=== PATIENT | male | born 1955 | race African-American/Black ===

== ENCOUNTER 2019-07-08 06:00 | Outpatient (RCR) | payer OTHER, SELFPAY | END 2019-08-07 00:01 | LOC: SPT 06:00 | PROVIDERS: Family Provider Emergency Medicine Emergency Medical Services; Visit Provider Licensed Practical Nurse | DX: M54.2 Cervicalgia (principal) | CPT/HCPCS: 97110 ×2 ==

== ENCOUNTER 2019-09-07 11:57 | Observation (INO) | payer OTHER, SELFPAY ==
[2019-09-05 08:57] VITALS: BMI 34.7
--- NOTE | 2019-09-05 09:20 | ANES.PREANES ---
Pre-Anesthetic Assessment Pre-Anesthetic Assessment: Height/Weight: Height 1.82 m Weight 114.759 kg Preop Diagnosis: Intervertebral disc disorder with myelopathy Proposed Procedure: Operation Date: 09/06/19 08:00 Proposed Procedures p Anterior Cervical Discecotmy&Fusion 2Lev C4-C5, C5-C6(Not Applicable) - Marco A Yu MD Familial anesthetic complications: No trouble iwth anesthesia Social: Social History: No alcohol and No tobacco Exam: Pre-Anes Outpt Exam: alert, oriented x 3, clear to auscultation bilaterally and regular rate & rhythm Airway: Cervical ROM: WNL MP: 2 Dentition: Loose Additional comments: 2 loose teeth, one on bottom. One is front INCISOR - patient informed risk of tooth being knocked out Pulmonary: Pulmonary: None reported CV/HEM: Comments: HOCM - received alchohol septal ablation 2 years ago (had been having fatigue with exertion), can now walk 2 miles : : None reported Hepatic: Hepatic: None reported GI: GI: None reported Musc/skel: Musc/skel: None reported Neuropsych: Neuropsych: None reported Comments: Has multiple sclerosis is on interferon - uses can for balance Anesthetic Plan: ASA status: III Anesthesia: General Risk of > 500 ml blood loss (7ml/kg in children): Yes, adequate IV access and fluids planned Data Anesthesia Cardiac Studies: No Data to Display
[2019-09-07] VITALS (13 sets, daily range): BP systolic 126–157; BP diastolic 67–100; PULSE 78–93; RESP 14–20; TEMP 36.3–36.9; O2SAT 91–100
--- NOTE | 2019-09-07 | XR_ITS ---
WS: [id number] Portable lateral cervical spine in the OR, 09/07/2019, 0727 hours Clinical Data: ACDF Comparison: Lateral cervical spine x-ray, 05/02/2019. Findings: An endotracheal tube is in good position. There is a radiopaque needle which is obliquely placed with the tip in the subcutaneous tissue at the C4 level. XR/XR cervical spine 1V 20111 Impression: Lateral cervical spine for localization of cervical vertebral body.
[2019-09-07] MEDS: sodium chloride 0.9% 1,000 ML 30 ML IV (06:33)
--- NOTE | 2019-09-07 06:36 | P.ANES_ITS ---
Pre-Anesthetic Update Pre-Anesthetic Assessment: Date of Surgery/Procedure: 09/07/19 Preop Celia gnosis: Intervertebral disc disorder with myelopathy Proposed Procedure: Operation Date: 09/07/19 07:00 Proposed Procedures p Anterior Cervical Discecotmy&Fusion 2Lev C4-C5, C5-C6(Not Applicable) - Marco A Yu MD Any changes to Pre-Anesthetic Assessment?: No Last Intake: Intake Last Liquid Date 09/06/19 Last Liquid Time 21:30 Last Solid Date 09/06/19 Last Solid Time 17:30 Vitals: Temperature 97.8 F 09/07/19 06:22 Pulse Rate 78 09/07/19 06:22 Respiratory Rate 18 09/07/19 06:22 Blood Pressure 157/100 09/07/19 06:22 Blood Pressure Jessi n 119 09/07/19 06:22 Pulse Oximetry 100 09/07/19 06:22 Oxygen Delivery Me thod 09/07/19 05:54 Exam: Pre-Anes Outpt Exam: alert, oriented x 3, clear to auscultation bilaterally and regular rate & rhythm Other Pertinent Information: Other Pertinent Information: Took metoprolol this morning Cardiac Studies: No Data to Display
--- NOTE | 2019-09-07 06:57 | PM.HPUD ---
H&P update H&P Update: DATE OF SURGERY/PROCEDURE: 09/07/19 DATE H&P PERFORMED: 08/14/19 H&P UPDATE INFORMATION: H&P completed within last 30 days and No changes to prior documentation PREOP DIAGNOSIS: Intervertebral disc disorder with myelopathy, cervical PRIMARY INDICATION FOR PROCEDURE: Severe cervical spinal canal compromise with neck pain and upper extremity symptoms. PLANNED PROCEDURE: Operation Date: 09/07/19 07:00 Proposed Procedures Anterior Cervical Discectomy/Fusion/fixation, C4-C5, C5-C6 - Marco A Yu MD Full H&P Medications/Allergies: Current Medications: Current Medications Generic Name Dose Route Start Last Admin Trade Name Freq PRN Reason Stop Dose Admin Sodium Chloride 1,000 mls @ 30 ml s/hr 09/07/19 06:30 09/07/19 06:33 Sodium Chloride 0.9% IV 09/08/19 06:29 30 mls/hr .Q24H NITZA Administration
--- NOTE | 2019-09-07 07:07 | PM.OP2 ---
 Brief Operative Note: Date of procedure: 09/07/19 Pre-op diagnosis: Intervertebral disc disorder with myelopathy, midcervical Post-op diagnosis: other (Same, with Instability of joint) Procedure Done: C4-C5, C5-C6 ACDFF Surgeon: Marco A Yu Estimated blood loss (mL): 25 Complications: None Post-op Plan: PACU, then surgical barnes Condition: stable Disposition: PACU Coding Level of Care Code Acute Oliving Machine Operator for Karime Ibarra
--- NOTE | 2019-09-07 08:08 | XR_ITS ---
WS: [id number] Portable lateral cervical spine in the OR, 09/07/2019, 0808 hours Clinical Data: surgery Comparison: Portable lateral cervical spine in the OR, 09/07/2019, 0727 hours. Findings: Soft tissue retractors are now been placed in the neck. There is a radiopaque needle which is localiz ing the C5-C6 disc interspace. XR/XR cervical spine 1ort 17148 Impression: Localization of C5-C6 interspace.
--- NOTE | 2019-09-07 08:16 | SUR.OPER ---
Family Notified Of Patient's Status Via Phone.
--- NOTE | 2019-09-07 09:23 | SUR.OPER ---
Family Notified Of Patient's Status Via Phone.
--- NOTE | 2019-09-07 10:24 | SUR.OPER ---
Family Notified Of Patient's Status Via Phone.
--- NOTE | 2019-09-07 11:26 | XR_ITS ---
WS: [id number] Cervical spine, AP and lateral views, 09/07/2019 1155 hours Clinical Data: Arthrodesis status Comparison: Portable lateral cervical spine in the OR, 09/07/2019, 0808 hours Findings: The patient is had an anterior cervical disc fusion from C4 through C6. The neural surgical screws and plate are in good position. There are disc spacers at C4-C5 and C5-C6. XR/XR cervical spine 3V* 14194 Impression: Satisfactory anterior cervical disc fusion of C4-C6.
--- NOTE | 2019-09-07 11:42 | SUR.PHASEI ---
8810 PATIENT TO PACU AT THIS TIME VIA GURNEY. RR EVEN AND UNLABORED. PWD. DRESSING TO ANTERIOR NECK, CDI WITH [place] J COLLAR IN PLACE. PT PLACED ON SIMPLE MASK AT 8L, SPO2 95%. PATIENT OPENS EYES TO VERBAL STIMULI.
--- NOTE | 2019-09-07 12:23 | SUR.PHASEI ---
1208 PATIENT TO MED SURG AT THIS TIME. RR EVEN AND UNLABORED. PWD. DENIES PAIN. ANTERIOR NECK DRESSING, CDI WITH [place] J COLLAR IN PLACE.
--- NOTE | 2019-09-07 12:40 | P.DS_ITS ---
Discharge Providers Date of Admission: 09/07/19 11:57 Date of Discharge: August Attending Provider at Admission: Marco A Yu MD Attending Provider at Discharge: Marco A Yu MD Primary Care Provider: Albert Garg DO Diagnoses at Discharge Discharge Diagnosis (1) Cervical disc disorder with myelopathy of mid-cervical region: Status: Acute Problem details: Patient is doing well after C4-C6 ACDFF performed earlier today. He appears reasonable for discharge home today, as requested. (2) Instability of joint: Status: Acute Reason for Visit Reason for Visit: Reason For Visit: Cervical disc disorder w/ myelopathy M50.020/71228 Brief History: The patient is a 64-year-old male with symptomatic, radiographically confirmed cervical disc/joint disease, and associated neural impingement. He complained of neck pain and bilateral upper extremity symptoms. Imaging studies demonstrated marked canal and bilateral foraminal compromise at C4-C5 and C5-C6. Conservative management did not provide adequate lasting symptom relief. After review of the diagnostic and treatment options with the risks/potential benefits/rationale for each, the patient requested to proceed with surgical intervention. Hospital Course Hospital Course: The patient underwent C4-C6 ACDFF on September 07, 2019. He tolerated the procedure well, and noted improvement in preoperative symptoms following surgery. He completed preoperative and postoperative intravenous antibiotic doses, and the physical therapy postoperative spine protocol. He was ambulatory, voiding, tolerating regular diet prior to requested discharge home on the evening of the date of surgery. Physical Exam Const: COMMON NORMALS: no apparent distress GENERAL APPEARANCE: cooperative and comfortable Neck/C-Spine: COMMON NORMALS: supple and no JVD CERVICAL SPINE: Yes collar present NECK IMAGES: 1. Surgical scar, with Steristrips. Cardio: COMMON NORMALS: no JVD Neuro: COMMON NORMALS: moves all extremities and no focal motor deficits (Upper extremities) Psych: COMMON NORMALS: speech normal ATTITUDE: Yes calm and Yes engaged ACTIVITY/MOTOR BEHAVIOR: Yes appropriate eye contact SPEECH: Yes normal speech MOOD & AFFECT: Yes euthymic mood ATTENTION/CONCENTRATION: Yes attention grossly intact Skin: WOUNDS: Yes surgical site (Left anterolateral neck surgical site dressing clean/dry/intact.) Urinary Catheter Management^: [place]: Cath Placed During This Visit: yes Urethral Indwelling: No Urinary Catheter Date of Insertion: 09/07/19 Urinary Catheter Time of Insertion: 07:20 Discharge Data Data Completed and Pending: Completed Studies During Hospitalization Category Date Time Status XR cervical spine 1 view portable [ XR cervical spine Exams 09/07/19 08:08 Completed 1Vport 82007] Rou hunter XR cervical spine 1V 35192 Routine Exams 09/07/19 Completed XR cervical spine 3V* [id number] Routine Exams 09/07/19 11:26 Completed Pathology: Surgic al [PTH] Routine Pth 09/07/19 11:44 Completed Addt'l Data from Hospital Stay: C-spine x-rays: Postoperative changes of recent C4-C6 ACDF, without noted complication. Vitals: Last Vital Signs Temp 97.9 F 09/08/19 00:38 Pulse 87 09/08/19 00:38 Resp 20 H 09/08/19 00:38 BP 138/73 09/08/19 00:38 Pulse Ox 92 09/08/19 00:38 Discharge Plan Discharge Patient Disposition: Home, Self-Care Condition: Stable Prescriptions: New [place] 7.5-325 mg tablet 1 tab PO Q4H PRN (Reason: pain) Qty: 30 RF: 0 Continued citalopram 40 mg Tablet 20 mg PO DAILY RF: 0 metoprolol tartrate [Lopressor] 100 mg Tablet 150 mg PO DAILY RF: 0 lisinopril 20 mg Tablet 20 mg PO DAILY RF: 0 sildenafil 100 mg Tablet 100 mg PO DAILY PRN (Reason: Erectile Dysfunction) RF: 0 nitroglycerin 0.4 mg Tablet, Sublingual 0.4 mg SUBLINGUAL Q5M PRN (Reason: Chest Pain) RF: 0 cyanocobalamin (vitamin B-12) [Vitamin B-12] 2,000 mcg Tablet Extended Release 2,000 mcg PO RF: 0 finasteride 5 mg Tablet 5 mg PO DAILY RF: 0 cholecalciferol (vitamin D3) [Vitamin D3] 25 mcg (1,000 unit) Capsule 25 mcg PO DAILY RF: 0 rosuvastatin 20 mg Tablet 20 mg PO DAILY RF: 0 interferon beta-1b auto-injector 1 INJECTION EVERY OTHER DAY RF: 0 No Action aspirin 81 mg Tablet,Delayed Release (Dr/Ec) 81 mg PO DAILY RF: 0 Discharge Orders: Discharge Order (Routine); Ordered 09/07/19 Ordered By: Marco A Yu Other Ambulatory Orders: XR cervical spine 3V* [id number] (Routine) Timeframe: 2 Weeks Facility: [facility] - Location: [facility] Ordered By: Marco A Yu Referrals: Marco A Yu MD [Physician] - 2 weeks (Call the clinic on Tuesday and make an appointment to be seen in the next 2 weeks.) Discharge Diet: Advance as tolerated Discharge Activity: Limit activity as instructed Patient Instructions: Hydrocodone/Acetaminophen (By mouth), Anterior Cervical Discectomy (DC) Activity Restrictions/Additional Instructions: Activity -Cervical fusion: Wear cervical collar 24 hours a day. Change as necessary for showering, shaving, or if it becomes soiled. -No lifting or reaching overhead. - No driving until office followup visit - No lifting/pushing/pulling over 10 pounds - Avoid twisting or bending - Walking is encouraged - Home exercise per physical therapist - You may engage in sexual intercourse at any time as long as it is comfortable for you - Check with your doctor before returning to work. Notify your doctor if you develop: - temperature of 101.5 degrees F. or higher - redness or swelling of the incision - Foul drainage - increasing pain - increasing numbness or tingling in the arms or legs - New or increasing problems with vision, balance, memory, speaking, nausea or vomiting Hygiene: - Showering is okay - No tub baths or soaking Other: Remove outer bandage 3 days after surgery. If you have paper strips, leave in place until they fall off on their own. If you have stitches, keep your incision dry until the stitches are removed. Your doctor's office is available to answer any questions from 7 AM to 5:00 PM, Tuesday through at [phone]. After hours, go to the emergency room at [facility] or call 911 for assistance. Discharge Date/Time: 09/07/19 19:00 Discharge Attestations Time Spent in Discharge Care*: other (postop global) Quality Metrics Clinical Quality Measures During this hospital stay, did patient experience: None Coding Level of Care Code Acute Advisory Software Engineer for Brianneg Fwd Exam Problem Focused Diagnoses Cervical disc disorder with myelopathy of mid-cervical region M50.020 Instability of joint M25.30 Comment postop global
[2019-09-07] MEDS: lactated ringers 1,000 ML 90 ML IV (13:13)
[2019-09-07] MEDS: atorvastatin 40 mg Tablet 80 MG PO (13:14)
[2019-09-07] MEDS: cholecalciferol (vitamin D3) 1,000 unit Tablet 1000 UNIT PO (13:14)
[2019-09-07] MEDS: docusate sodium 100 mg Capsule PO (17:27)
[2019-09-08 00:38] VITALS: BP 138/73; PULSE 87; RESP 20; TEMP 36.6; O2SAT 92
--- NOTE | 2019-09-08 20:54 | P.OP_ITS ---
Operative Report Date of procedure: September 07, 2019 Pre-op Diagnosis: Intervertebral disc disorder with myelopathy, mid cervical Post-op Diagnosis: Intervertebral disc disorder with myelopathy, midcervical Instability of joint Procedure Done: 1. C4-C5, C5-C6 anterior cervical discectomy with osteophytectomy. 2. C4-C5, C5-C6 anterior cervical plate and screw fixation. 3. C4-C5, C5-C6 placement of intervertebral prosthetic devices. 4. C4-C5, C5-C6 anterior cervical fusion utilizing morselized autograft obtained from the osteophytectomy portions of the procedure. Implants: Synthes Vectra plate/screw system. ACIS ProTi Spacers. Specimens removed/disposition: C4-C5, C5-C6 disc Surgeon: Marco A Yu Anesthesia: General Estimated blood loss (mL): 25 Complications: None. Condition: stable Disposition: PACU Brief History: The patient is a 64-year-old male with symptomatic, radiographically confirmed cervical disc/joint disease, and associated neural impingement. He complained of neck pain and bilateral upper extremity symptoms. Imaging studies demonstrated marked canal and bilateral foraminal compromise at C4-C5 and C5-C6. Conservative management did not provide adequate lasting symptom relief. After review of the diagnostic and treatment options with the risks/potential benefits/rationale for each, the patient requested to proceed with surgical intervention. Procedure: After routine preoperative evaluation and informed consent were obtained, the patient was taken to the Operating Room and placed under general endotracheal anesthesia by Anesthesia personnel. He was positioned supine and fit in the [place] tongs for the application of in-line cervical traction. The anterolateral neck on the left was prepared with hair clippers. A proposed transverse skin incision was marked with a sterile skin marker, utilizing intraoperative radiography and regional anatomy for localization. The area was scrubbed with Betadine, prepped with DuraPrep, and draped with sterile towels and drapes. [place]an surgical barrier was applied. The proposed incision site was infiltrated with 1% Xylocaine with Epinephrine. A skin incision was made and carried down into the subcutaneous tissues. The platysma was identified and divided in the direction of its fibers. A plane was dissected just medial to the carotid sheath and lateral to the midline esophagus and trachea. Prevertebral soft tissues were bluntly dissected free of the anterior margin of the cervical spine. Longus coli muscles were freed from their medial attachments. Deep self- retaining retractors were placed. Intraoperative radiography verified the desired surgical levels. The C4-C5 and C5-C6 interspaces were sequentially incised with a #11 blade. Discectomies were accomplished utilizing various curettes and pituitary rongeurs. Anterior marginal osteophytes were resected with the Lempert and Kerrison rongeurs. Cartilaginous end plates were stripped free with curettes. Posterior marginal osteophytes were resected with thin foot plate Kerrison rongeurs. The medial aspects of the neural foramina were enlarged in a similar manner. Posterior longitudinal ligament was divided and resected as necessary to further the decompression. Due to extensive bony overgrowth of the disc space and marginal osteophyte contribution to neural impingement, the [employer] high-speed drill with xin mark was utilized to complete the osteophytectomy portions of the procedure and for endplate preparation. Once the decompressions were felt to be adequate at both levels, the disc spaces were sized. An 8 mm ACIS ProTi lordotic/medium Spacer was chosen for C4-C5. A 7mm ACIS ProTi lordotic/medium Spacer was chosen for C5-C6. The Spacers were packed with morselized autograft obtained from the osteophytectomy portions of the procedure. The Spacers were sequentially placed within the C4-C5 and C5-C6 interspaces while in-line cervical traction was applied via the Lynch-Wells tongs. Once the Spacers were felt to be in good position, a Synthes Vectra plate of the desired size was chosen. The plate was bent to match the curvature of the patient's cervical spine utilizing the plate chowdhury. The plate was secured to the C4, C5 and C6 vertebral bodies with bilateral 4 mm x 14 mm self-drilling screws. Final screw tightening was performed, and the locking mechanisms within the plate were noted to engage the screws at each site. The construct was inspected and felt to be in good position and secure. The wound was copiously irrigated with sterile saline and antibiotic irrigation. Hemostasis was ensured with the bipolar electrocautery and Surgi-Isaac hemostatic matrix. Wound closure was performed in multiple layers with 2-0 Vicryl Plus simple interrupted closure of the platysma and deep dermis as separate layers. Final skin closure was performed with 4-0 Vicryl Plus in a running subcuticular pattern. Steri-Strips were applied, and a sterile dressing was placed. The patient was released from the [facility] and fit in a Mears collar. He was transferred onto the Recovery Room cart in the supine position. He was extubated without incident. The patient tolerated the procedure well. All sponge, needle, and instrument counts were correct at the completion of the procedure.
== END 2019-09-07 19:00 | disposition home or self-care (01) ==
LOC: MEDSURG 11:58
PROVIDERS: Admitting Provider Specialist; Family Provider Emergency Medicine Emergency Medical Services; PCP Emergency Medicine Emergency Medical Services; Visit Provider Specialist
PROC: 0RB30ZZ Excision of Cervical Vertebral Disc, Open Approach (ICD-10-PCS; CPT 22551; principal; 2019-09-07 07:00)
DX: M50.021 Cervical disc disorder at C4-C5 level with myelopathy (principal); I10 Essential (primary) hypertension; E78.5 Hyperlipidemia, unspecified
CPT/HCPCS: 20936; 22551; 22552; 22853 ×2; 12345; 51702; 72020; 72040; 88304; 96361; 97110; 97161; C1713; G0378; J0131; J0690; J1100; J2001; J2405; J2704; J3010; J3490; J7030; L0172; L0174

== ENCOUNTER 2019-09-19 09:49 | Outpatient (CLI) | payer OTHER, SELFPAY ==
--- NOTE | 2019-09-19 10:02 | XR_ITS ---
WS: [id number] CERVICAL SPINE TECHNIQUE: 3 views of the cervical spine CLINICAL INFORMATION: postop ACDFF COMPARISON: September 07, 2019 FINDINGS: Straightening of the normal cervical lordosis. Anterior interbody cervical fusion C4-C6 with interbod y fusion grafts. Hardware and fusion grafts appear in good position. Normal postoperative prevertebra l soft tissue edema. Normal C1-C2 articulation. XR/XR cervical spine 3V* [id number] IMPRESSION: Normal postoperative ACDF C4-C6
== END 2019-09-19 09:50 | disposition home or self-care (01) ==
PROVIDERS: Family Provider Emergency Medicine Emergency Medical Services; PCP Emergency Medicine Emergency Medical Services; Visit Provider Specialist
DX: Z98.1 Arthrodesis status (principal)
CPT/HCPCS: 72040

== ENCOUNTER 2019-10-11 11:13 | Outpatient (CLI) | payer OTHER, SELFPAY ==
--- NOTE | 2019-10-11 11:21 | XR_ITS ---
WS: [id number] CERVICAL SPINE TECHNIQUE: 3 views of the cervical spine CLINICAL INFORMATION: ARTHRODESIS STATUS COMPARISON: None. FINDINGS: Postoperative changes anterior interbody fusion C4-C6 with interbody fusion grafts. Postoperative pre vertebral soft tissue edema with persistent but improved. XR/XR cervical spine 3V* [id number] IMPRESSION: Anterior cervical fusion is stable with persistent but improved prevertebral so ft tissue edema.
== END 2019-10-11 11:14 | disposition home or self-care (01) ==
PROVIDERS: Family Provider Emergency Medicine Emergency Medical Services; PCP Emergency Medicine Emergency Medical Services; Visit Provider Licensed Practical Nurse
DX: Z98.1 Arthrodesis status (principal)
CPT/HCPCS: 72040

== ENCOUNTER 2019-11-12 08:35 | Outpatient (CLI) | payer OTHER, SELFPAY ==
--- NOTE | 2019-11-12 08:39 | XR_ITS ---
WS: [id number] CERVICAL SPINE 2 VIEWS HISTORY: s/p cervical spinal fusion COMPARISON: 10/11/2019 Status post anterior cervical fusion from C4 to C6. Interbody disc spaces at C4-5 and C5-6. No lucenc y around the screws. No subsidence of interbody spacers. Mild narrowing of the disc level C3-4. Moderate disc space narrowing at C6-7. Soft tissues are normal. XR/XR cervical spine 3V* [id number] IMPRESSION: 1. Status post anterior cervical fusion with interbody spacer from C4 to C6. 2. No complications.
--- NOTE | 2019-11-12 13:29 | CT_ITS ---
WS: [id number] CT CERVICAL SPINE HISTORY: s/p cervical spinal fusion TECHNIQUE: Contiguous 2.5 mm axial imaging performed through the entire cervical spine. Sagittal and coronal reformats also performed. All CT scans at [facility] use at least one of these do se optimization techniques: automated exposure control; mA and/or kV adjustment per patient size (inc ludes targeted exams where dose is matched to clinical indication); or iterative reconstruction. DLP: 1904.59 mGycm COMPARISON: 05/14/2019 Straightening of the normal cervical lordosis. Prior anterior fusion from C4 through C6. Interbody sp acers at C4-5 and C5-6 without fusion. No subsidence or change in position of the graft. Disc space h eight have been resumed. No fracture. C2-C3: Central disc protrusion. C3-C4: Mild osteophytic ridging without stenosis. C4-C5: Mild osteophytic ridging without stenosis. C5-C6: Diffuse osteophytic ridging with encroachment upon the ventral thecal sac and foramen. Severe central and bilateral foraminal stenosis. C6-C7: Diffuse osteophytic ridging with at least moderate central and bilateral foraminal stenosis. C7-T1: No stenosis. Soft tissues are normal. Lung apices are clear. CT/CT cervical spin wo con* [id number] IMPRESSION: 1. Interval placement of anterior cervical fusion hardware with interbody spac ers at C4-5 and C5-6 without postsurgical complications. 2. Severe central and bilateral foraminal stenosis at C5-6 and moderate at C6- 7.
== END 2019-11-12 08:36 | disposition home or self-care (01) ==
PROVIDERS: Family Provider Emergency Medicine Emergency Medical Services; PCP Emergency Medicine Emergency Medical Services; Visit Provider Licensed Practical Nurse
DX: Z98.1 Arthrodesis status (principal); M48.02 Spinal stenosis, cervical region
CPT/HCPCS: 72040; 72125

== ENCOUNTER → 2020-01-29 11:20 | Outpatient (BNVA) | payer OTHER, SELFPAY | PROVIDERS: Family Provider Emergency Medicine Emergency Medical Services; PCP Emergency Medicine Emergency Medical Services; Referring Provider Emergency Medicine Emergency Medical Services; Visit Provider Specialist | DX: G35 Multiple sclerosis (principal); R50.9 Fever, unspecified | CPT/HCPCS: G0463 ==

== ENCOUNTER → 2020-02-19 08:45 | Outpatient (BNVA) | payer OTHER, SELFPAY | PROVIDERS: Family Provider Emergency Medicine Emergency Medical Services; PCP Emergency Medicine Emergency Medical Services; Visit Provider Specialist | DX: G35 Multiple sclerosis (principal) | CPT/HCPCS: 99213; 99214 ==

== ENCOUNTER → 2021-02-10 09:39 | Outpatient (BNVA) | payer OTHER, SELFPAY | PROVIDERS: Family Provider Emergency Medicine Emergency Medical Services; PCP Emergency Medicine Emergency Medical Services; Visit Provider Specialist | DX: G35 Multiple sclerosis (principal); Z87.891 Personal history of nicotine dependence | CPT/HCPCS: 99214 ==

== ENCOUNTER 2021-03-11 07:47 | Outpatient (CLI) | payer OTHER, SELFPAY ==
--- NOTE | 2021-03-11 07:51 | MR_ITS ---
WS: [id number] MRI CERVICAL SPINE with and without contrast. HISTORY: G35 - Multiple sclerosis COMPARISON: 02/27/2019 Technique: Multiplanar, multisequence noncontrast imaging of the cervical spine. Post contrast imagin g with 20 mL MultiHance. Straightening of the normal cervical lordosis. Prior anterior cervical fusion with interbody spacers extends from C4 through C6. No marrow edema or fracture. No inferior displacement of cerebellar tonsi ls. Signal within the cervical cord is normal. Visualized posterior fossa is unremarkable. Craniocervical junction, C1 and C2 relationship, odontoid process and soft tissues are normal. C2-C3: Shallow central disc protrusion. No stenosis. C3-C4: Very slight annular disc bulging and osteophytic ridging with slight encroachment upon the gwendolyn tral thecal sac. No significant stenosis. C4-C5: Mild diffuse annular disc bulging and small osteophytes. No significant stenosis. Very mild fo raminal narrowing. C5-C6: Diffuse moderate annular disc bulging and osteophytic ridging. Mild narrowing of the central c anal and mild bilateral foraminal narrowing. C6-C7: Diffuse annular disc bulging with moderate osteophytic ridging. Mild central and LEFT foramina l narrowing due to osteophyte disease predominantly. Mild RIGHT foraminal narrowing. C7-T1: Mild osteophytic ridging. No significant stenosis. Mild narrowing of the disc space. Paravertebral soft tissues are negative. No enhancement within the cervical cord on the visualized brainstem or posterior fossa. MR/MR cervical spine wo/w [id number] IMPRESSION: 1. No cervical cord demyelinating lesions or abnormal enhancement. 2. Stable anterior cervical fusion with interbody spacers from C4 to C6. 3. Mild central and foraminal stenosis at C5-6. 4. Mild central LEFT foraminal stenosis at C6-7.
--- NOTE | 2021-03-11 07:51 | MR_ITS ---
WS: [id number] MRI BRAIN WITH AND WITHOUT CONTRAST HISTORY: G35 - Multiple sclerosis COMPARISON: 12/29/2017 TECHNIQUE: Multiplanar imaging performed through the brain with MultiHance 20 ml's IV. No acute infarcts are seen. Castillo-white matter differentiation is well preserved. Patchy and confluent T2 and FLAIR signal hyperintensities surrounding the ventricles and in the centrum semiovale ovale a nd subcortical white matter. No obvious progression since the prior examination. Focal small black ho les adjacent to the LEFT lateral ventricle are similar to the prior study with no progression. Bilate ral callosal confluent increased FLAIR and T2 signal is stable and slightly greater on the LEFT. No s ignal abnormalities appreciated within the posterior fossa. No susceptibility artifacts or prior lacunar infarcts. Ventricles and extra-axial spaces are normal. Clivus and pituitary gland are normal. Visualized posterior fossa and brainstem are also normal. There is no enhancement of the white matter lesions to suggest active demyelination. Dural venous sinuses are normal. Paranasal sinuses: Well aerated with no significant disease. Mastoid air cells: Normal. Calvarium and scalp: Normal. MR/MR head wo/w con [id number] IMPRESSION: 1. No enhancement or active demyelination. 2. Stable appearance of the nonspecific white matter changes in the periventri cular, centrum semiovale and subcortical white matter. These may be related to demyelination or small vessel ischemic disease. 3. Stable white matter lesions along the corpus callosum compatible with prior demyelination. No enhancement.
[2021-03-11] MEDS: gadobenate dimeglumine 20 mL vial IV (09:34)
== END 2021-03-11 07:48 | disposition home or self-care (01) ==
LOC: RADSHAW 07:49
PROVIDERS: PCP Emergency Medicine Emergency Medical Services; Visit Provider Specialist
DX: G35 Multiple sclerosis (principal)
CPT/HCPCS: 70553; 72156; A9577

== ENCOUNTER 2021-04-21 09:25 | Outpatient (CLI) | payer OTHER, SELFPAY ==
--- NOTE | 2021-04-21 09:30 | USCV_ITS ---
Arie Omalley Age: 66 Gender: M : 1955 Exam Date: 04/21/2021 10:04 Ordering Phys: Iesha Wiley MD ([email or web address]) Technologist: Exam Location: [facility] – [place] Indication: CHEST PAIN BP: 125 / 72 HR: 81 Rhythm: Sinus Technical Quality: Adequate MEASUREMENTS (Male / Female) Normal Values 2D ECHO LV Diastolic Diameter PLAX 3.4 cm 4.2 - 5.9 / 3.9 - 5.3 cm LV Systolic Diameter PLAX 2.8 cm IVS Diastolic Thickness 1.9 cm 0.6 - 1.0 / 0.6 - 0.9 cm IVS Systolic Thickness 1.7 cm LVPW Diastolic Thickness 1.3 cm 0.6 - 1.0 / 0.6 - 0.9 cm LVPW Systolic Thickness 1.7 cm LVOT Diameter 2.0 cm LV Ejection Fraction 2D Teich 41.0 % LV Ejection Fraction MOD 2C 65.4 % LV Ejection Fraction 2C AL 67.4 % LA Diameter 5.2 cm LA Width 6.2 cm LA Height 6.0 cm RA Width 3.9 cm RA Height 6.3 cm Aorta at Sinotubular Diameter 2.8 cm DOPPLER AV Peak Velocity 121.0 cm/s LVOT Peak Velocity 87.0 cm/s AV Area Cont Eq vti 3.3 cm squared AV Area Cont Eq pk 2.3 cm squared MV Area PHT 5.0 cm squared Mitral E to A Ratio 1.3 MV E' Velocity 63.0 cm/s Mitral E to MV E' Ratio 15.4 Mitral E to LV E' Lateral Ratio 22.1 Mitral E to LV E' Septal Ratio 11.9 TR Peak Velocity 140.7 cm/s TR Peak Gradient 7.9 mmHg TV Peak E Velocity 78.0 cm/s Right Atrial Pressure 3.0 mmHg Pulmonary Artery Systolic Pressu 10.9 mmHg FINDINGS Left Ventricle Normal left ventricular cavity size and systolic function. Moderately increased left ventricular wall thickness (septal thickness > posterior wall thickness) . Left ventricular ejection fraction is estimated at 55-60 %. There is hypokinesis of basal to mid septal wall consistent with prior surgery. No other diagnostic regional wall motion abnormalities. Grade II diastolic dysfunction, moderately elevated filling pressures. Right Ventricle Normal right ventricular size and systolic function. RVSP could not be calculated due to incomplete tricuspid regurgitation velocity profile. Right Atrium Normal right atrial size. Right atrial pressure estimated at 3 mm Hg. Left Atrium Moderately increased left atrial size. Mitral Valve Moderate to severe mitral annular calcification. Moderately thickened mitral valve. Mild mitral valve regurgitation. Aortic Valve Mildly thickend probably trileaflet aortic valve. No aortic valve stenosis. No aortic valve regurgitation. Tricuspid Valve Structurally normal tricuspid valve. Trace to mild tricuspid valve regurgitation. Pulmonic Valve Pulmonic valve not well visualized. Pericardium No pericardial effusion. Aorta Normal size aortic root and proximal ascending aorta. Normal sized inferior vena cava. CONCLUSIONS 1. Normal left ventricular cavity size and systolic function. Moderately increased left ventricular wall thickness (septal thickness > posterior wall thickness) . Left ventricular ejection fraction is estimated at 55-60 %. There is hypokinesis of basal to mid septal wall consistent with prior surgery. Grade II diastolic dysfunction, moderately elevated filling pressures. 2. Moderately increased left atrial size. 3. Mild mitral valve regurgitation. 4. There may not have been any significant change when compared to 03/22/2019. Iesha Wiley MD (Electronically Signed) Final Date: 25 April 2021 11:03 S
== END 2021-04-21 09:26 | disposition home or self-care (01) ==
LOC: US 09:27
PROVIDERS: PCP Emergency Medicine Emergency Medical Services; Visit Provider Internal Medicine Cardiovascular Disease
DX: I45.10 Unspecified right bundle-branch block (principal); R07.9 Chest pain, unspecified; I34.0 Nonrheumatic mitral (valve) insufficiency
CPT/HCPCS: 93306

== ENCOUNTER → 2021-08-17 10:54 | Outpatient (BNVA) | payer OTHER, SELFPAY | PROVIDERS: PCP Emergency Medicine Emergency Medical Services; Visit Provider Specialist | DX: G35 Multiple sclerosis (principal) | CPT/HCPCS: 99213 ==

== ENCOUNTER → 2022-01-18 10:51 | Outpatient (BNVA) | payer OTHER, SELFPAY | PROVIDERS: PCP Emergency Medicine Emergency Medical Services; Visit Provider Specialist | DX: G35 Multiple sclerosis (principal) | CPT/HCPCS: 99214 ==

== ENCOUNTER 2022-03-15 12:25 | Outpatient (CLI) | payer OTHER, SELFPAY ==
--- NOTE | 2022-03-15 13:00 | MR_ITS ---
WS: [id number] MRI BRAIN WITH AND WITHOUT CONTRAST HISTORY: G35 - Multiple sclerosis COMPARISON: 03/11/2021 TECHNIQUE: Multiplanar imaging performed through the brain with MultiHance 20 ml's IV. No acute infarcts are seen. Castillo-white matter differentiation is well preserved. Numerous T2 and FLAI R signal hyperintensities. These are in the subcortical and pericallosal distribution. No temporal lo be lesions. Demyelinating lesions involving the corpus callosum in the pericallosal white matter stab le. Black holes of axonal injury along the LEFT lateral ventricle. None of these lesions enhance. No cerebellar lesion. No prior hemorrhage. Ventricles and extra-axial spaces are normal. Clivus and pituitary gland are normal. Minimal cerebellar ectopia. Postcontrast images are negative for masses or vascular malformations. Dural venous sinuses are normal. Paranasal sinuses: Well aerated with no significant disease. Mastoid air cells: Normal. Calvarium and scalp: Normal. MR/MR head wo/w con [id number] IMPRESSION: 1. No evidence for active demyelination. 2. Bilateral frontal and parietal subcortical white matter lesions and perical losal white matter lesions have not significantly progressed. No progression of the chronic axonal injury along the LEFT lateral ventricle. Stable demyelinati ng changes. 3. No demyelinating lesions in the visualized brainstem or the cerebellum. 4. Mild atrophy.
[2022-03-15] MEDS: gadobenate dimeglumine 20 mL vial IV (14:41)
== END 2022-03-15 12:26 | disposition home or self-care (01) ==
PROVIDERS: PCP Emergency Medicine Emergency Medical Services; Visit Provider Specialist
DX: G35 Multiple sclerosis (principal); G31.9 Degenerative disease of nervous system, unspecified
CPT/HCPCS: 70553

== ENCOUNTER 2022-03-15 12:26 | Outpatient (CLI) | payer OTHER, SELFPAY ==
--- NOTE | 2022-03-15 13:45 | MR_ITS ---
WS: [id number] MRI CERVICAL SPINE with and without contrast. HISTORY: G35 - Multiple sclerosis COMPARISON: 03/11/2021 Technique: Multiplanar, multisequence noncontrast imaging of the cervical spine. Post contrast imagin g, MultiHance 20 cc IV. Straightening of the normal cervical lordosis. Cervical fusion from C4 to C6. Interbody spacer at C4- 5 and C5-6. No definite signal abnormalities are noted within the cord. No focal areas of abnormal en hancement. Signal within the cervical cord is normal. Visualized posterior fossa is unremarkable. Mild ectopia of the cerebellar tonsils. C2-C3: No stenosis. C3-C4: Shallow central disc protrusion. Mild osteophytic ridging and annular disc bulging. Mild encro achment upon the ventral thecal sac. Mild central and bilateral foraminal stenosis. C4-C5: No stenosis. C5-C6: Mild osteophytic ridging. Mild foraminal stenosis. C6-C7: Mild osteophytic ridging. Mild foraminal and central stenosis. C7-T1: Mild osteophytic ridging with a central disc protrusion. Moderate ligamentum flavum and facet arthritis. Moderate central and LEFT foraminal stenosis. Mild RIGHT foraminal stenosis. Paraspinal soft tissue are normal. No enhancing demyelinating lesions within the cervical cord. No significant atrophy. MR/MR cervical spine wo/w [id number] IMPRESSION: 1. No demyelinating lesions or enhancing lesions in the cervical cord. 2. Multilevel facet, osteophyte and disc disease. 3. Moderate central LEFT foraminal stenosis at C6-7. Mild RIGHT foraminal sten osis. 4. Mild central and bilateral foraminal stenosis at C3-4 and C6-7.
== END 2022-03-15 12:27 | disposition home or self-care (01) ==
PROVIDERS: PCP Emergency Medicine Emergency Medical Services; Visit Provider Specialist
DX: G35 Multiple sclerosis (principal); M25.78 Osteophyte, vertebrae; M50.30 Other cervical disc degeneration, unspecified cervical region; M48.02 Spinal stenosis, cervical region
CPT/HCPCS: 72156

== ENCOUNTER → 2022-05-17 10:41 | Outpatient (BNVA) | payer OTHER, SELFPAY | PROVIDERS: PCP Emergency Medicine Emergency Medical Services; Visit Provider Internal Medicine Cardiovascular Disease | DX: I42.2 Other hypertrophic cardiomyopathy (principal); I10 Essential (primary) hypertension; Z87.891 Personal history of nicotine dependence | CPT/HCPCS: 99213; 99214 ==

== ENCOUNTER → 2023-02-07 10:37 | Outpatient (BNVA) | payer OTHER, SELFPAY | PROVIDERS: PCP Emergency Medicine Emergency Medical Services; Visit Provider Internal Medicine Cardiovascular Disease | DX: I42.2 Other hypertrophic cardiomyopathy (principal); I10 Essential (primary) hypertension; Z87.891 Personal history of nicotine dependence | CPT/HCPCS: 99214 ==

== ENCOUNTER → 2023-11-08 09:39 | Outpatient (BNVA) | payer OTHER, SELFPAY | PROVIDERS: PCP Emergency Medicine Emergency Medical Services; Visit Provider Nurse Practitioner Family | DX: I42.2 Other hypertrophic cardiomyopathy (principal); I10 Essential (primary) hypertension; Z87.891 Personal history of nicotine dependence | CPT/HCPCS: 99214 ==

== ENCOUNTER → 2024-11-29 11:13 | Outpatient (BNVA) | payer OTHER, SELFPAY | PROVIDERS: PCP Nurse Practitioner Family; Visit Provider Internal Medicine Cardiovascular Disease | DX: I42.2 Other hypertrophic cardiomyopathy (principal); R07.9 Chest pain, unspecified; E78.2 Mixed hyperlipidemia; I45.10 Unspecified right bundle-branch block; G35 Multiple sclerosis; I10 Essential (primary) hypertension | CPT/HCPCS: 93005; 99214 ==

== ENCOUNTER 2025-01-04 09:39 | Outpatient (CLI) | payer OTHER, SELFPAY ==
--- NOTE | 2025-01-04 10:00 | USCV_ITS ---
Arie Omalley Age: 69 Gender: M : 1955 Exam Date: 01/04/2025 10:42 Ordering Phys: Wayne Post MD ([email or web address]) Technologist: Azar Giron Exam Location: [facility] [place] Indication: HOCM BP: 151 / 61 HR: 79 Rhythm: Sinus Technical Quality: Adequate MEASUREMENTS (Male / Female) Normal Values 2D ECHO LV Diastolic Diameter PLAX 3.8 cm 4.2 - 5.9 / 3.9 - 5.3 cm IVS Diastolic Thickness 2.1 cm 0.6 - 1.0 / 0.6 - 0.9 cm IVS Systolic Thickness 2.3 cm LVPW Diastolic Thickness 2.1 cm 0.6 - 1.0 / 0.6 - 0.9 cm LVPW Systolic Thickness 2.5 cm LVOT Diameter 2.1 cm LV Ejection Fraction 2D Teich 63.7 % LV Ejection Fraction MOD 4C 58.5 % LV Ejection Fraction MOD 2C 65.4 % LV Ejection Fraction 2C AL 65.1 % LA Diameter 4.7 cm RA Systolic Volume 4C AL 48.6 ml RA Systolic Volume 4C MOD 43.2 ml LA Sys Volume AL 84.4 cm cubed LA Sys Volume Index AL 33.9 cm cubed/m squared Aorta at Sinotubular Diameter 2.3 cm IVC Diameter 1.9 cm M-MODE LA Ao Ratio MM 2.0 AV Cusp Separation MM 1.8 cm DOPPLER AV Peak Velocity 132.0 cm/s LVOT Peak Velocity 115.0 cm/s AV Area Cont Eq vti 2.7 cm squared AV Area Cont Eq pk 2.9 cm squared MV Peak Velocity 154.0 cm/s MV Area PHT 5.0 cm squared Mitral E to A Ratio 0.8 TV Peak Velocity 284.0 cm/s TR Peak Velocity 364.0 cm/s TR Peak Gradient 53.0 mmHg TR Mean Velocity 317.0 cm/s TR Mean Gradient 41.5 mmHg TR Velocity Time Integral 109.0 cm PV Peak Velocity 75.7 cm/s RV Ejection Time 0.3 s FINDINGS Left Ventricle Left ventricle normal size. LV systolic function is normal with EF of 60-65%. No regional wall motion abnormalities. Grade 1 diastolic dysfunction. Moderate LVH with septal wall thickness of 1.5-1.7cm. Right Ventricle Normal in size and function Right Atrium Normal in size Left Atrium Dilated Mitral Valve Mild mitral annular calcification. Mild mitral regurgitation. Mild mitral stenosis with mean gradient of 5mmHg. Aortic Valve Grossly normal. No significant stenosis. Mild to moderate aortic regurgitation Tricuspid Valve Insufficient TR jet to calculate RVSP Pulmonic Valve Trace pulmonic regurgitation. Pericardium Normal Aorta Normal in size IVC Appears to be normal CONCLUSIONS Cholesterol function is normal with EF of 60-65%. Grade 1 diastolic dysfunction. Moderate left ventricular hypertrophy with septal thickness of 1.5-1.7cm Left atrial dilation Mild mitral regurgitation Mild to moderate aortic regurgitation Trace pulmonic regurgitation Compared to prior echocardiogram from 2020, no significant changes Marco Paz MD (Electronically Signed) Final Date: 21 January 2025 12:30 S
== END 2025-01-04 09:40 | disposition home or self-care (01) ==
PROVIDERS: PCP Nurse Practitioner Family; Visit Provider Internal Medicine Cardiovascular Disease
DX: I42.2 Other hypertrophic cardiomyopathy (principal); R93.1 Abnormal findings on diagnostic imaging of heart and coronary circulation; I34.81 Nonrheumatic mitral (valve) annulus calcification; I34.0 Nonrheumatic mitral (valve) insufficiency; I35.1 Nonrheumatic aortic (valve) insufficiency; I51.89 Other ill-defined heart diseases
CPT/HCPCS: 93306

== ENCOUNTER → 2025-06-11 09:47 | Outpatient (BNVA) | payer OTHER, SELFPAY | PROVIDERS: PCP Nurse Practitioner Family; Visit Provider Internal Medicine Cardiovascular Disease | DX: I42.2 Other hypertrophic cardiomyopathy (principal); I10 Essential (primary) hypertension; E78.5 Hyperlipidemia, unspecified; I45.10 Unspecified right bundle-branch block; G35.D Multiple sclerosis, unspecified; Z87.891 Personal history of nicotine dependence | CPT/HCPCS: 99214 ==